=== PATIENT | male | born 1950 | race Caucasian/White ===

== ENCOUNTER 2018-06-03 07:24 | Day surgery (SDC) | payer MEDICARE ==
[2015-12-19 17:22] VITALS: BMI 28.6
[2018-06-03] MEDS ORDERED: Etomidate 20 mg/10ml Inj IV ONE (09:19)
[2018-06-03] MEDS ORDERED: Lidocaine Hydrochloride 5 ML INJ ONE (09:19)
[2018-06-03] MEDS ORDERED: Propofol 10 mg/ml Inj (20 ML) ONE (09:20)
[2018-06-03] MEDS ORDERED: Lactated Ringer's 1,000 ML IV ONE (09:20)
--- NOTE | 2018-06-03 09:20 | CP.SDSHP ---
Same Day Surgery H & P - History Proposed Procedure: colonoscopy Pre-Op Diagnosis: screening - Previous Medical/Surgical History Cardiac: Hypertension Endocrine/Metabolic: Diabetes Comments: atrial fibrillation - Allergies Allergies: Allergies No Known Allergies Allergy (Verified 12/19/15 18:08) - Physical Exam General Appearance: NAD Vital Signs: Vital Signs 06/03/18 07:57 Temperature 98.6 F Pulse Rate 90 Respiratory 20 Rate Blood Pressure 95/70 L O2 Sat by Pulse 99 Oximetry Mental Status: Alert & Oriented x3 Neuro: WNL Heart: WNL Lungs: WNL GI: WNL - {Optional Preform as Required} Abdomen: WNL - Impression Pt. Evaluated Today:Candidate for Anesthesia & Procedure: Yes - Date & Time Date: 06/03/18 Time: 09:20 Short Stay Discharge - Short Stay Discharge Admitting Diagnosis/Reason for Visit: SCREENING Disposition: HOME/ ROUTINE
[2018-06-03] MEDS ORDERED: ePHEDrine 50 mg/ml Inj ONE (09:27)
[2018-06-03] MEDS ORDERED: Phenylephrine 10 mg/ml Inj ONE (09:38)
[2018-06-03 10:21] VITALS: TEMP 98.2
[2018-06-03 11:37] VITALS: BP 112/76; PULSE 77; RESP 14; O2SAT 99
== END 2018-06-03 11:35 | disposition home or self-care (01) ==
LOC: C.ENDO 07:24
PROVIDERS: ATTEND Internal Medicine Gastroenterology
DX: Z12.11 Encounter for screening for malignant neoplasm of colon (principal); D12.5 Benign neoplasm of sigmoid colon; D12.3 Benign neoplasm of transverse colon; E11.9 Type 2 diabetes mellitus without complications; I10 Essential (primary) hypertension; D12.0 Benign neoplasm of cecum; K55.20 Angiodysplasia of colon without hemorrhage; K57.90 Diverticulosis of intestine, part unspecified, without perforation or abscess without bleeding; K64.8 Other hemorrhoids
CPT/HCPCS: 45380; 45381; 45385; 82948; 88305; J2370; J2704; J3010; J7120